=== PATIENT | female | born 1955 | race Asian ===

== ENCOUNTER 2019-11-23 10:12 | Emergency (ER) | payer OTHER ==
[~2019-11-23] VITALS: Ht 149.9 cm; Wt 84.8 kg
[~2019-11-23 10:12] MED LIST: AMARYL2 MG PO; ASPI-COR81 M2 PO; ATENOLOL50 MG PO; METFORMIN HCL1000 MG PO; NEXIUM40 MG PO
[2019-11-23 10:17] VITALS: Ht 149.9 cm; Wt 84.8 kg
[2019-11-23 11:59] VITALS: BP 148/78
== END 2019-11-23 13:06 | disposition home or self-care (01) ==
LOC: ED 10:12
DX: S83.92XA Sprain of unspecified site of left knee, initial encounter (principal); M54.5 Low back pain; I10 Essential (primary) hypertension; E11.9 Type 2 diabetes mellitus without complications; E78.00 Pure hypercholesterolemia, unspecified; S73.101A Unspecified sprain of right hip, initial encounter; W18.30XA Fall on same level, unspecified, initial encounter; Y93.89 Activity, other specified; Y92.89 Other specified places as the place of occurrence of the external cause; Y99.8 Other external cause status
CPT/HCPCS: J1885; Q0092